=== PATIENT | female | born 1990 | race Caucasian/White ===

== ENCOUNTER 2016-08-24 18:47 | Emergency (ER) | payer OTHER ==
[2016-08-24 19:10] VITALS: TEMP 98; BMI 26.2
--- NOTE | 2016-08-24 19:28 | EDPRACDOC ---
- General Information Chief Complaint: Head Injury Stated Complaint: LADDER FELL ON HEAD KNOT TO RT SIDE OF HEAD NLOC Time Seen by Provider: 08/24/16 19:21 Information Source: Patient Mode Of Arrival: Car Home Medications: Home Medications No Home Medications 08/24/16 Allergies/Adverse Reactions: Allergies Allergy/AdvReac Type Severity Reaction Status Date / Time Penicillins Allergy Severe Hives* Verified 08/24/16 19:10 - History of Present Illness Onset: 1000 HPI: PT STATES A LADDER FELL OVER AND HIT HER ON THE RIGHT SIDE OF THE HEAD AT WORK TODAY, PT STATES SHE HAD A HEADACHE AND WAS FEELING DIZZY. PT HAS NOT HAD N/V, STATES SHE FEELS SOME BETTER NOW, NOT DIZZY BUT CONTINUES TO HAVE HEADACHE AND SWELLING. Location: Reports: Parietal Pain Quality: Reports: Moderate, Constant, Aching Modifying Factors: Denies: Medication, Exposure to light, Cold therapy, Immobilization, Movement, Rest Prior work up: Denies: NO, O, CT, LP, MRI, Neurologist Relevant History of: Reports: None Associated Signs and Symptoms: Denies: Confusion, Loss of Consciousness, Nausea/ Vomiting, Stiff Neck ED Past Medical History - History Reviewed Yes Nurses notes reviewed and agree except as marked - Patient Medical History GI/ History: Reports: Kidney Stones Psychological History: Denies: Depression Systemic History: Denies: Cancer Additional Past Medical History: ENDOMETRIOSIS Surgical History: Reports: Other (EXPL LAP FOR ENDOMETRIOSIS) - Family Medical History Reports: Hypertension (FATHER). Denies: Diabetes, Cancer, Stroke, Cardiac Disorders - Social Medical History Smoking Status: Never smoker ETOH: None Substance Abuse: None EDM Review of Systems - Review of Systems Constitutional: negative: Chills, Fever Eyes: negative: Blurred Vision, Double Vision, Vision Loss Ears: negative: Drainage Throat: negative: Pain Nose: negative: Bleeding, Congestion, Discharge Respiratory: negative: Cough, Shortness of Breath, Wheezing Cardiovascular: negative: Chest Pain, Palpitations Gastrointestinal: negative: Diarrhea, Nausea, Pain, Vomiting Genitourinary: negative: Dysuria, Frequency Neurological: Dizziness, Headache. negative: Numbness, Weakness Musculoskeletal: No Symptoms Reported Integumentary: No Symptoms Reported - Physical Exam Constitutional: Alert (Awake), No apparent distress Oriented to: Time, Person, Place Last recorded Vital Signs: Last Vital Signs Temp 98.0 F 08/24/16 19:07 Pulse 76 08/24/16 19:07 Resp 18 08/24/16 19:07 BP 133/60 08/24/16 19:07 Pulse Ox 100 08/24/16 19:07 Oxygen Pulse Oxygen Saturation 100 O2 Device Oxygen Flow Rate Fraction of Inspired Oxygen ( FIO2) - HEENT Head: Swelling (RIGHT PARIETAL SCALP, SMALL HEMATOMA), Tender (RIGHT PARIETEAL SCALP) Eye Exam: Normal (PERRL, EOMI, Sclera white) Oropharynx: Normal (Pharynx:Moist without exudate,Gums-no swelling) Tympanic Membrane: Normal ENT EAC: Normal TMJ: Normal Nose: No Symptoms Reported (septum midline) Neck: Normal (FROM, trachea at midline) - Respiratory/Cardiovascular Respiratory: Normal - CTA (BBS clear to auscultation without adventitious sounds ) Cardiovascular: Normal (RRR without murmur, gallop or rub) - Musculoskeletal Back: Normal (Non-Tender) Extremities: Normal (Normal tone, Pulses 2+ No cyanosis or edema, FROM) - Integumentary Skin: Normal, Warm, Dry Lymphatics: Normal (no adenopathy) - Neurologic Memory Impaired: Normal Motor Function: Normal (Normal tone, Pulses 2+ No cyanosis or edema, FROM) Cranial Nerve: Normal (CN II-X11 intact sensation, strength 5/5) Cerebellar: Normal Mood Description: Normal Perception: Normal - Differential Diagnosis Closed Head Injury, Skull Fracture, ICH, SDH, EDH Decision Time to Discharge: 19:28 - Departure Disposition: Home Condition: Stable Final Diagnosis: Minor head injury without loss of consciousness Qualifiers: Encounter type: initial encounter Qualified Code(s): S09.90XA - Unspecified injury of head, initial encounter Instructions: Concussion (ED) Education/Counseling Given To: Patient Education/Counseling Given Regarding: Diagnosis, Treatment, Prognosis, Follow Up Referrals: Anne Torres MD [Staff Physician] - 08/27/16 Forms: Excuse Note Additional Instructions: REST, DRINK PLENTY OF FLUIDS, LIMIT EXPOSURE TO TELEVISION, COMPUTERS, VIDEO GAMES, CELL PHONE, AVOID STRENUOUS ACTIVITY. USE TYLENOL OR MOTRIN NEEDED FOR PAIN, RETURN TO THE ED FOR ANY WORSENING SYMPTOMS OR CONCERNS.
[2016-08-24 19:43] VITALS: BP 107/59; PULSE 62
== END 2016-08-24 19:40 | disposition home or self-care (01) ==
LOC: EDMC 18:47
DX: S09.90XA Unspecified injury of head, initial encounter (principal); W20.8XXA Other cause of strike by thrown, projected or falling object, initial encounter
CPT/HCPCS: 99282